=== PATIENT | female | born 1945 | race Caucasian/White ===

== ENCOUNTER 2016-12-05 09:44 | Emergency (ER) | payer OTHER ==
[2016-12-05 10:01] VITALS: BP 137/63; PULSE 55; RESP 16; TEMP 98.1; O2SAT 93
--- NOTE | 2016-12-05 10:44 | EDPHY ---
H & P Time Seen by Provider: 12/05/16 10:08 HPI/ROS: CHIEF COMPLAINT: Eye swelling HISTORY OF PRESENT ILLNESS: 71-year-old female whose had issues intermittently with bilateral eyelid swelling and nasal congestion for the last several months. Patient was initially placed on oral antibiotic to treat his sinusitis which improved her symptoms only minimally. She then was placed on prednisone to be treated as potential allergic reaction but could not tolerate the oral prednisone. Over the last several weeks the patient has been using combination of Flonase nasal spray as well as Zyrtec and has had some improvement in her eyelid swelling. She fluid here today from [place] when she woke this morning her eyes were once again quite puffy and swollen. Small amount of crusting. Eyes are slightly itchy. No fever. Some nasal congestion. No runny nose. No cough. No ear pain. No sore throat. No fever. REVIEW OF SYSTEMS: Aside from elements discussed in the HPI, a comprehensive 10-point review of systems was reviewed and is negative. PAST MEDICAL HISTORY: Longstanding GI issues followed at [facility]. Multiple surgical resections. Dry eyes. SOCIAL HISTORY: Visiting here from [place]. VITAL SIGNS: see nurse's notes. GENERAL: Well-developed, well-nourished, in no acute distress. HEENT: Pleasant, conversant. Focused examination of bilateral eyes. Eyelid: Watery angioedema both upper eyelids. No erythema. Pupils: 3 mm, reactive bilaterally. EOMI Conjunctivae: No discharge noted. Mild bilateral injection. Skin: No proptosis, no vesicles. LUNGS: Clear to auscultation. CARDIAC: Regular rate and rhythm. ABDOMEN: Benign. NEURO: Alert and oriented, grossly nonfocal. SKIN: Warm and dry, no rash. Smoking Status: Never smoked Constitutional: Initial Vital Signs Temperature (C) 36.7 C 12/05/16 09:55 Heart Rate 55 L 12/05/16 09:55 Respiratory Rate 16 12/05/16 09:55 Blood Pressure 137/63 H 12/05/16 09:55 O2 Sat (%) 93 12/05/16 09:55 O2 Delivery Mode Room Air Allergies/Adverse Reactions: Penicillins Allergy (Severe, Verified 12/05/16 09:50) Anaphylaxis erythromycin base Allergy (Intermediate, Verified 12/05/16 09:51) Vomiting Sulfa (Sulfonamide Antibiotics) Allergy (Intermediate, Verified 12/05/16 09:51) Hives Home Medications: Medication Instructions Recorded Fdgard 12/05/16 Ibgard 12/05/16 Metoprolol Succinate 12/05/16 Ofloxacin 0.3% [Ocuflox 0.3%] 1 - 2 drops OP QID #1 opht.btl 12/05/16 Pravastatin Sodium 12/05/16 Probiotic 12/05/16 Prolia 12/05/16 Tumeric 12/05/16 Zyrtec 12/05/16 traZODone 12/05/16 Medical Decision Making ED Course/Re-evaluation: Probable seasonal or environmental allergies resulting in bilateral eyelid edema and swelling. Patient advised to continue with Zyrtec as well as added Benadryl if needed. Continue to take Flonase nasal spray as. Patient does have some injection and gives a history of slight discharge. Ofloxacin eye drops were prescribed to treat any infection. Patient was advised follow-up with her finishing trimmer when she returns to [place] was also given the name of Ophthalmology here if needed. Differential Diagnosis: Differential diagnosis for the patient's presenting complaints includes seasonal allergies, corneal abrasion, conjunctivitis, blepharitis, hordeolum, chalazion, cellulitis, periorbital cellulitis, glaucoma, and contusion. Departure - Departure Disposition: Home, Routine, Self-Care Clinical Impression: Eye swollen, bilateral Allergic reaction Qualifiers: Encounter type: initial encounter Qualified Code(s): T78.40XA - Allergy, unspecified, initial encounter Conjunctivitis Qualifiers: Conjunctivitis type: unspecified Laterality: bilateral Qualified Code(s): H10.9 - Unspecified conjunctivitis Condition: Good Instructions: Diphenhydramine (By mouth), Conjunctivitis (ED) Additional Instructions: Please begin using the Flonase nasal spray. Continue to take Zyrtec as a nonsedating antihistamine. You may take 25 mg of Benadryl at nighttime to help with the swelling. Cool compresses to the eyes will also help with the swelling. Consider limiting all lotions and makeup on the eyelids in case some of these are resulting in an allergic reaction. You have also been given a prescription for ofloxacin eyedrops. This will treat any infection in the eye. It also has some anti-inflammatory effects. Referrals: [facility],[place] [Other] - As per Instructions Brandie Ann MD [Non Staff Provider (MD)] - As per Instructions (Follow up with an finishing trimmer on return to [place]. If you want to see an finishing trimmer well urine [place], you been given referral to Dr Ann.) Prescriptions: Ofloxacin 0.3% [Ocuflox 0.3%] 1 - 2 drops OP QID #1 opht.btl
== END 2016-12-05 11:05 | disposition home or self-care (01) ==
LOC: CED 09:44
DX: H10.9 Unspecified conjunctivitis (principal); T78.40XA Allergy, unspecified, initial encounter